=== PATIENT | male | born 1965 | race Caucasian/White ===

== ENCOUNTER 2023-05-20 14:28 | Outpatient (CLI) | payer OTHER, SELFPAY ==
--- NOTE | 2023-05-20 15:00 | CRLHL7_ITS ---
For Patients: As a result of the Century Cures Act, medical imaging exams and procedure reports are released immediately into your electronic medical record. You may view this report before your referring provider. If you have questions, please contact your health care provider. INDICATION: Anosmia. TECHNIQUE: Noncontrast CT of the paranasal sinuses. COMPARISON: None. FINDINGS: No air-fluid levels to suggest acute sinusitis. Very small right maxillary sinus retention cysts or polyps. Mild left maxillary sinus mucosal thickening. The ethmoid infundibula are widely patent. Mild mucosal thickening left frontal recess. The frontal sinuses are otherwise clear. Minimal mucosal thickening in the ethmoid air cells. Minimal mucosal thickening in the sphenoid sinuses. The sphenoethmoidal recesses are widely patent. Mild 2 mm leftward nasal septal deviation. No nasal cavity masses. The mastoid air cells are clear. IMPRESSION: 1. Minimal paranasal sinus mucosal disease. No air-fluid levels to suggest acute sinusitis. 2. Mild leftward nasal septal deviation. Please note that all CT scans at this facility use dose modulation, iterative reconstruction, and/or weight-based dosing when appropriate to reduce radiation dose to as low as reasonably achievable. Dictated by Surya Bronson MD @ 05/22/2023 1:38:18 PM (Electronically Signed)
== END 2023-05-20 14:29 | disposition home or self-care (01) ==
PROVIDERS: PCP Family Medicine; Visit Provider Otolaryngology
DX: R43.0 Anosmia (principal); J34.2 Deviated nasal septum
CPT/HCPCS: 70486